=== PATIENT | male | born 1980 | race Caucasian/White ===

== ENCOUNTER 2017-07-31 11:07 | Emergency (ER) | payer OTHER ==
[~2017-07-31] VITALS: Ht 185.4 cm; Wt 90.7 kg
[2017-07-31 11:30] VITALS: BP 127/90
[2017-07-31] MEDS ORDERED: NORCO 5-325 TA1 EACH PO (11:33)
[2017-07-31] MEDS ORDERED: PENICILLIN V P500 MG PO (11:33)
[2017-07-31] MEDS ORDERED: IBUPROFEN 600600 M1 PO (11:33)
== END 2017-07-31 11:46 | disposition home or self-care (01) ==
LOC: M.ERS 11:07
DX: S02.5XXA Fracture of tooth (traumatic), initial encounter for closed fracture (principal); F17.210 Nicotine dependence, cigarettes, uncomplicated; X58.XXXA Exposure to other specified factors, initial encounter; Y93.89 Activity, other specified; Y92.89 Other specified places as the place of occurrence of the external cause; Y99.8 Other external cause status